=== PATIENT | female | born 1970 | race Caucasian/White ===

== ENCOUNTER 2022-09-27 00:10 | Emergency (ER) | payer BC, OTHER ==
[2022-09-27 00:35] VITALS: PULSE 79
[2022-09-27] MEDS: Ibuprofen 600 MG Tab PO ONE (00:57)
[2022-09-27 01:00] VITALS: BP 152/99
== END 2022-09-27 01:05 | disposition home or self-care (01) ==
LOC: KA.ED 00:10
DX: S50.02XA Contusion of left elbow, initial encounter (principal); M25.422 Effusion, left elbow; I10 Essential (primary) hypertension; W00.0XXA Fall on same level due to ice and snow, initial encounter
CPT/HCPCS: 73070-LT; 99283; A9270-GY